=== PATIENT | female | born 1975 | race Two or more races ===

== ENCOUNTER 2022-01-06 04:06 | Day surgery (SDC) | payer OTHER ==
[2022-01-01 17:43] VITALS: BMI 27.4
[2022-01-06] MEDS ORDERED: MIDAZOLAM HCL 2 MG/2 ML SINGLE DOSE VIAL ONE (14:09)
[2022-01-06] MEDS ORDERED: LIDOCAINE HCL/PF 2% SDV 5ML VIAL ONE (14:10)
[2022-01-06] MEDS ORDERED: PROPOFOL 20 ML ONE ×3 (14:10→15:03)
[2022-01-06] MEDS ORDERED: LIDOCAINE HCL 2% JELLY 10 ML CARTRIDGE ONE (14:26)
[2022-01-06] MEDS ORDERED: ceFAZolin SODIUM 1 GM VIAL IVPB ONE (14:45)
[2022-01-06] MEDS ORDERED: ONDANSETRON 4 MG/2 ML VIAL IVPUSH PRN (15:08)
[2022-01-06] MEDS ORDERED: oxyCODONE HCL 5 MG TABLET PO PRN (15:08)
[2022-01-06] MEDS ORDERED: LACTATED RINGERS SOLUTION 1,000 ML IV SCH (15:15)
[2022-01-06 20:10] VITALS: TEMP 97.8
[2022-01-06 20:22] VITALS: BP 118/74; PULSE 70
== END 2022-01-06 17:48 | disposition home or self-care (01) ==
LOC: JASU-SURG 04:06
PROVIDERS: ATTEND Urology
PROC: 0T5B8ZZ Destruction of Bladder, Via Natural or Artificial Opening Endoscopic (ICD-10-PCS; principal; 2022-01-06 15:00)
DX: N30.21 Other chronic cystitis with hematuria (principal)
CPT/HCPCS: 81025; 88305-TC; 94760